=== PATIENT | male | born 1950 | race Caucasian/White ===

== ENCOUNTER 2024-09-23 | Inpatient (IN) | payer MEDICARE, OTHER ==
[~2024-09-23] VITALS: Ht 175.3 cm; Wt 81.8 kg
[2024-09-23] VITALS (7 sets, daily range): BP systolic 115–150; BP diastolic 69–94; PULSE 83–93; RESP 14–24; TEMP 97.9–99; O2SAT 92–97
[2024-09-23] MEDS: amiodarone/D5 360MG/200ML BAG 200 ML IV ONE ×2 (00:39→09:06)
[2024-09-23] MEDS: sodium bicarbonate (8.4%) 1 mEq/ml syringe IV ONE (00:45)
[2024-09-23 01:47] LABS: BASOPHILS # (AUTO) 0.1 X10'3 (0-0.2); BASOPHILS % (AUTO) 0.5 % (0-1); EOSINOPHILS % (AUTO) 0.1 % (0-6); HEMATOCRIT 50.1 % (42.0-52.0); LYMPHOCYTES # (AUTO) 0.3 X10'3 (1.1-4.8); LYMPHOCYTES % (AUTO) 1.4 % (21-51); MEAN CORPUSCULAR HEMOGLOBIN 33.3 PG (27.0-31.0); MEAN CORPUSCULAR HGB CONC 33.9 g/dL (33.0-36.5); MEAN CORPUSCULAR VOLUME 98.4 FL (78-98); MEAN PLATELET VOLUME 9.1 FL (7.4-10.4); MONOCYTES # (AUTO) 0.6 X10'3 (0-0.9); MONOCYTES % (AUTO) 2.9 % (2-12); NEUTROPHILS # (AUTO) 19.3 X10'3 (1.8-7.7); NEUTROPHILS % (AUTO) 95.1 % (42-75); PLATELET COUNT 96 X10'3 (140-440); RED CELL DISTRIBUTION WIDTH 17.9 % (11.5-14.5); WHITE BLOOD COUNT 20.3 X10'3 (4.5-11.0)
[2024-09-23] MEDS ORDERED: FLUT1DIS20 INH (01:53)
[2024-09-23] MEDS ORDERED: FURO-150 PO (01:53)
[2024-09-23] MEDS ORDERED: PRED5TAB PO (01:53)
[2024-09-23] MEDS ORDERED: ALBU90AE INH (01:53)
[2024-09-23] MEDS ORDERED: LOSA-416 PO (01:53)
[2024-09-23] MEDS ORDERED: FLUT1BLS13 INH (01:53)
[2024-09-23] MEDS ORDERED: METO-411 PO (01:53)
[2024-09-23 01:59] LABS: APTT 27 SECONDS (22-32); INR 1.2 INR; PROTHROMBIN TIME 12.8 SECONDS (9.0-12.0)
[2024-09-23 02:11] LABS: BILIRUBIN,URINE SMALL (Neg); CLARITY,URINE SLIGHTLY CLOUDY (Clear); COLOR,URINE YELLOW (Yellow); GLUCOSE, URINE NEGATIVE (Neg); KETONES,URINE TRACE mg/dl (Neg); LEUKOCYTE ESTERASE ,URINE NEGATIVE (Neg); NITRITES, URINE NEGATIVE (Neg); OCCULT BLOOD,URINE SMALL (Neg); PH,URINE 5.5 (4.8-8.0); PROTEIN,URINE 30 mg/dl (Neg); UROBILINOGEN,URINE 0.2 E.U/dL (0.2-1.0)
[2024-09-23 02:41] LABS: UA COLLECTION TYPE CLN CATCH MIDSTREAM
[2024-09-23 02:42] LABS: BACTERIA,URINE FEW /HPF (Neg); SQUAMOUS EPITHELIAL CELL,UR FEW /LPF (FEW)
[2024-09-23 02:43] LABS: HYALINE CASTS 0-3 /LPF (NEGATIVE)
[2024-09-23 02:44] LABS: ALBUMIN 2.3 G/DL (3.4-5.0); ANION GAP 6 (8-16); BLOOD UREA NITROGEN 53 MG/DL (7-18); BUN/CREATININE RATIO 39.6 (10.0-20.0); CALCIUM 8.5 MG/DL (8.5-10.1); CHLORIDE 101 MMOL/L (99-107); CREATINE KINASE MB 14.3 ng/ml (0.3-3.6); CREATININE 1.34 MG/DL (0.60-1.10); GLUCOSE 135 MG/DL (70-104); LIPASE 13 U/L (16-77); MAGNESIUM 2.3 MG/DL (1.5-2.4); POTASSIUM 4.7 MMOL/L (3.5-5.1); SODIUM 141 MMOL/L (135-145); TOTAL CARBON DIOXIDE 33.8 MMOL/L (24-32); eCRCL 48 ML/MIN; eGFR 52 ML/MIN
[2024-09-23 02:49] LABS: CKMB RELATIVE INDEX 1.1 RATIO (0-2.5); CREATINE KINASE 1350 U/L (39-308)
[2024-09-23] MEDS: heparin 10,000 units/1 ML INJ IV ONE ×2 (04:20→05:35)
[2024-09-23] MEDS: normal saline 1000ML IV soln IVB ONE ×2 (04:21→05:43)
[2024-09-23] MEDS: CefTRIAXone 2gm/D5W 50ml BAG 50 ML IV ONE (04:22)
[2024-09-23] MEDS: heparin 25,000 UNIT/250ml bag 250 ML IV PRN (05:37)
[2024-09-23] MEDS: MESSAGE TO NURSING IV ONE ×3 (05:37→20:44)
[2024-09-23] MEDS ORDERED: magnesium Cl slow-release 64mg tablet PO PRN (06:10)
[2024-09-23] MEDS ORDERED: potassium Cl 20 mEq SR tablet PO PRN ×2 (06:10)
[2024-09-23] MEDS ORDERED: potassium Cl 40MEQ/1/2NS 520ml 520 ML IV PRN (06:10)
[2024-09-23] MEDS ORDERED: magnesium sulf-water 2g/50mL 50 ML IV PRN (06:10)
[2024-09-23] MEDS ORDERED: magnesium sulf-water 4G/100mL 100 ML IV PRN (06:10)
[2024-09-23] MEDS ORDERED: normal saline 1000ml 1,000 ML IV SCH (06:15)
[2024-09-23] MEDS: HYDROmorphone 1 mg/ml syringe IV PRN (06:24)
[2024-09-23] MEDS: K and/or MAG REPLACEMENT MC SCH (08:00)
[2024-09-23] MEDS ORDERED: cefepime 1GM in D5W 50mL 50 ML IV SCH (08:00)
[2024-09-23] MEDS: ringers solution, lacted 1,000 ML IV SCH (08:25)
[2024-09-23 08:27] LABS: HEMOGLOBIN A1C 5.9 % (4.5-6.2)
[2024-09-23 08:40] LABS: URINE AMPHETAMINE SCREEN NEGATIVE (Neg); URINE BARBITUATE SCREEN NEGATIVE (Neg); URINE BENZODIAZEPINES SCREEN NEGATIVE (Neg); URINE CANNABINOID SCREEN POSITIVE (Neg); URINE COCAINE SCREEN NEGATIVE (Neg); URINE METHADONE SCREEN NEGATIVE (Neg); URINE OPIATE SCREEN POSITIVE (Neg); URINE PHENCYCLIDINE SCREEN NEGATIVE (Neg)
[2024-09-23] MEDS: normal saline 1000ml 1,000 ML IV ONE (09:04)
[2024-09-23] MEDS: VANCOMYCIN 1GM 200ML H20 (PEG) 200 ML IV SCH (09:05)
[2024-09-23] MEDS: thiamine 100mg/ml 2ml inj. IV SCH (09:05)
[2024-09-23] MEDS: pantoprazole 40 MG vial IV SCH (09:05)
[2024-09-23 13:34] LABS: CREATINE KINASE 601 U/L (39-308)
[2024-09-23 13:37] LABS: APTT 45 SECONDS (22-32)
[2024-09-23] MEDS: heparin 10,000 units/1 ML INJ IV PRN (20:42)
[2024-09-23] MEDS: cefepime 1GM in D5W 50mL 50 ML IV SCH (20:47)
[2024-09-24] VITALS (17 sets, daily range): BP systolic 107–175; BP diastolic 51–95; PULSE 56–103; RESP 13–22; TEMP 97.4–98.6; O2SAT 88–97
[2024-09-24 03:45] LABS: BASOPHILS % (AUTO) 0.2 % (0-1); EOSINOPHILS % (AUTO) 0 % (0-6); HEMOGLOBIN 13.7 g/dl (14.0-17.9); LYMPHOCYTES # (AUTO) 0.5 X10'3 (1.1-4.8); LYMPHOCYTES % (AUTO) 3.4 % (21-51); MEAN CORPUSCULAR HEMOGLOBIN 32.8 PG (27.0-31.0); MEAN CORPUSCULAR HGB CONC 33.4 g/dL (33.0-36.5); MEAN CORPUSCULAR VOLUME 98.1 FL (78-98); MEAN PLATELET VOLUME 9.1 FL (7.4-10.4); MONOCYTES # (AUTO) 0.6 X10'3 (0-0.9); MONOCYTES % (AUTO) 4.3 % (2-12); NEUTROPHILS # (AUTO) 13.1 X10'3 (1.8-7.7); NEUTROPHILS % (AUTO) 92.1 % (42-75); PLATELET COUNT 89 X10'3 (140-440); RED BLOOD COUNT 4.18 X10'6 (4.70-6.10); WHITE BLOOD COUNT 14.2 X10'3 (4.5-11.0)
[2024-09-24 03:51] LABS: INR 1.1 INR; PROTHROMBIN TIME 11.8 SECONDS (9.0-12.0)
[2024-09-24 03:57] LABS: ALANINE AMINOTRANSFERASE 43 U/L (12-78); ALBUMIN 1.7 G/DL (3.4-5.0); ALBUMIN/GLOBULIN RATIO 0.5 (1.1-1.5); ALKALINE PHOSPHATASE 41 IU/L (46-116); ANION GAP 4 (8-16); BILIRUBIN,TOTAL 1.4 MG/DL (0.1-1.0); BLOOD UREA NITROGEN 43 MG/DL (7-18); BUN/CREATININE RATIO 43.4 (10.0-20.0); CHLORIDE 103 MMOL/L (99-107); CHOL/HDL RATIO 2.5 (0.00-4.99); CHOLESTEROL 100 MG/DL (0-200); CREATININE 0.99 MG/DL (0.60-1.10); GLUCOSE 144 MG/DL (70-104); HDL CHOLESTEROL 40 MG/DL (35-60); LDL CHOLESTEROL 49 MG/DL (50-100); MAGNESIUM 2.1 MG/DL (1.5-2.4); SODIUM 139 MMOL/L (135-145); TOTAL PROTEIN 4.9 G/DL (6.4-8.2); TRIGLYCERIDES 81 MG/DL (20-135); eCRCL 64 ML/MIN; eGFR 74 ML/MIN
[2024-09-24 04:02] LABS: ASPARTATE AMINO TRANSFERASE 77 U/L (10-37); CREATINE KINASE 446 U/L (39-308); POTASSIUM 4.3 MMOL/L (3.5-5.1)
[2024-09-24] MEDS: MESSAGE TO NURSING IV ONE ×2 (04:16→11:20)
[2024-09-24] MEDS: regadenoson 0.4mg/5ml syringe IV ONE (09:10)
[2024-09-24] MEDS ORDERED: hydrALAZINE 20mg/ml inj. IV PRN (15:05)
[2024-09-24] MEDS ORDERED: ipratropium/albuterol 3ml nebule NEB PRN (15:10)
[2024-09-24] MEDS: ipratropium/albuterol 3ml nebule NEB SCH (15:20)
[2024-09-24] MEDS: metoprolol succinate 25mg (24-HOUR) SR. Tablet PO SCH (15:22)
[2024-09-24] MEDS: aspirin 81mg, enteric-coated 1 TAB TABLET.DR PO SCH (15:39)
[2024-09-24] MEDS: methylPREDNISolone sod succ 125mg/2ml vial IV SCH (16:10)
[2024-09-24] MEDS: azithromycin/NS 500mg/250ml 250 ML IV SCH (17:21)
[2024-09-24] MEDS: apixaban 5mg tablet PO SCH (20:11)
[2024-09-24] MEDS: amiodarone 200mg tablet PO SCH (20:11)
[2024-09-24] MEDS: atorvastatin 20mg tablet PO SCH (20:12)
[2024-09-24] MEDS: sacubitril/valsartan 24mg-26mg tablet PO SCH (20:12)
[2024-09-24] MEDS: temazepam 15mg capsule PO ONE (20:45)
[2024-09-25] VITALS (10 sets, daily range): BP systolic 109–140; BP diastolic 76–95; PULSE 70–94; RESP 15–23; TEMP 97.6–98.1; O2SAT 91–98
[2024-09-25] MEDS: diphenhydrAMINE 25mg capsule PO ONE (03:38)
[2024-09-25 06:34] LABS: BASOPHILS % (AUTO) 0.1 % (0-1); EOSINOPHILS % (AUTO) 0 % (0-6); HEMATOCRIT 37.7 % (42.0-52.0); HEMOGLOBIN 13.1 g/dl (14.0-17.9); LYMPHOCYTES # (AUTO) 0.2 X10'3 (1.1-4.8); LYMPHOCYTES % (AUTO) 2.8 % (21-51); MEAN CORPUSCULAR HEMOGLOBIN 33.7 PG (27.0-31.0); MEAN CORPUSCULAR HGB CONC 34.7 g/dL (33.0-36.5); MEAN CORPUSCULAR VOLUME 97.1 FL (78-98); MEAN PLATELET VOLUME 8.9 FL (7.4-10.4); MONOCYTES # (AUTO) 0.2 X10'3 (0-0.9); MONOCYTES % (AUTO) 2.3 % (2-12); NEUTROPHILS # (AUTO) 7.3 X10'3 (1.8-7.7); NEUTROPHILS % (AUTO) 94.8 % (42-75); PLATELET COUNT 100 X10'3 (140-440); RED BLOOD COUNT 3.89 X10'6 (4.70-6.10); RED CELL DISTRIBUTION WIDTH 17.3 % (11.5-14.5); WHITE BLOOD COUNT 7.7 X10'3 (4.5-11.0)
[2024-09-25 06:44] LABS: ALANINE AMINOTRANSFERASE 43 U/L (12-78); ALBUMIN 1.8 G/DL (3.4-5.0); ALBUMIN/GLOBULIN RATIO 0.6 (1.1-1.5); ALKALINE PHOSPHATASE 40 IU/L (46-116); ANION GAP 1 (8-16); ASPARTATE AMINO TRANSFERASE 55 U/L (10-37); BILIRUBIN,TOTAL 1.5 MG/DL (0.1-1.0); BLOOD UREA NITROGEN 31 MG/DL (7-18); BUN/CREATININE RATIO 35.2 (10.0-20.0); CALCIUM 7.8 MG/DL (8.5-10.1); CHLORIDE 100 MMOL/L (99-107); CREATININE 0.88 MG/DL (0.60-1.10); GLUCOSE 203 MG/DL (70-104); MAGNESIUM 1.8 MG/DL (1.5-2.4); PHOSPHORUS 1.9 MG/DL (2.3-4.5); POTASSIUM 3.9 MMOL/L (3.5-5.1); SODIUM 133 MMOL/L (135-145); TOTAL CARBON DIOXIDE 32.3 MMOL/L (24-32); TOTAL PROTEIN 4.9 G/DL (6.4-8.2); eCRCL 73 ML/MIN; eGFR 84 ML/MIN
[2024-09-25 06:45] LABS: APTT 32 SECONDS (22-32); INR 1.1 INR; PROTHROMBIN TIME 11.7 SECONDS (9.0-12.0)
[2024-09-25] MEDS: cefepime 1GM in D5W 50mL 50 ML IV SCH (08:10)
[2024-09-25] MEDS: JUVEN Smoothie Arginine/Glut./Ca2+Bmb (Juven 19.3pkt) 240ml cup PO SCH (17:30)
[2024-09-25] MEDS: metoprolol tartrate 25mg tablet PO SCH (20:25)
[2024-09-25] MEDS: ketorolac trometh 15mg/ml vial 15 MG/ML ML IV ONE (22:21)
[2024-09-26] VITALS (19 sets, daily range): BP systolic 121–162; BP diastolic 78–98; PULSE 66–82; RESP 14–22; TEMP 97.5–98.2; O2SAT 92–100
[2024-09-26] MEDS: VANCOMYCIN LEVEL IV ONE (07:30)
[2024-09-26 07:42] LABS: BASOPHILS % (AUTO) 0.1 % (0-1); EOSINOPHILS % (AUTO) 0 % (0-6); HEMATOCRIT 40.6 % (42.0-52.0); HEMOGLOBIN 14.1 g/dl (14.0-17.9); LYMPHOCYTES # (AUTO) 0.2 X10'3 (1.1-4.8); MEAN CORPUSCULAR HGB CONC 34.7 g/dL (33.0-36.5); MEAN CORPUSCULAR VOLUME 98.1 FL (78-98); MONOCYTES # (AUTO) 0.2 X10'3 (0-0.9); MONOCYTES % (AUTO) 1.9 % (2-12); NEUTROPHILS # (AUTO) 9.9 X10'3 (1.8-7.7); PLATELET COUNT 138 X10'3 (140-440); RED BLOOD COUNT 4.14 X10'6 (4.70-6.10); RED CELL DISTRIBUTION WIDTH 17.1 % (11.5-14.5); WHITE BLOOD COUNT 10.3 X10'3 (4.5-11.0)
[2024-09-26] MEDS: metoprolol tartrate 25mg tablet PO SCH (07:51)
[2024-09-26 07:54] LABS: APTT 29 SECONDS (22-32); INR 1.2 INR; PROTHROMBIN TIME 12.1 SECONDS (9.0-12.0)
[2024-09-26 08:00] LABS: ALANINE AMINOTRANSFERASE 44 U/L (12-78); ALBUMIN/GLOBULIN RATIO 0.6 (1.1-1.5); ALKALINE PHOSPHATASE 43 IU/L (46-116); ANION GAP 4 (8-16); ASPARTATE AMINO TRANSFERASE 43 U/L (10-37); BILIRUBIN,TOTAL 1.3 MG/DL (0.1-1.0); BLOOD UREA NITROGEN 36 MG/DL (7-18); BUN/CREATININE RATIO 34.3 (10.0-20.0); CALCIUM 7.9 MG/DL (8.5-10.1); CHLORIDE 99 MMOL/L (99-107); CREATININE 1.05 MG/DL (0.60-1.10); GLUCOSE 193 MG/DL (70-104); MAGNESIUM 1.9 MG/DL (1.5-2.4); PHOSPHORUS 2.5 MG/DL (2.3-4.5); POTASSIUM 4.4 MMOL/L (3.5-5.1); SODIUM 134 MMOL/L (135-145); TOTAL CARBON DIOXIDE 31.4 MMOL/L (24-32); TOTAL PROTEIN 5.3 G/DL (6.4-8.2); VANCOMYCIN,TROUGH 4.3 ug/mL (10.0-20.0); eCRCL 61 ML/MIN; eGFR 69 ML/MIN
[2024-09-26 14:32] LABS: TOTAL HEMOGLOBIN 15.9 G/dl (13.5-17.5)
[2024-09-26] MEDS: furosemide 40mg/4ml inj IV ONE (15:04)
[2024-09-26] MEDS: DOBUTamine-DoBUTrex 500mg/D5W 250 ML IV SCH (15:31)
[2024-09-26 16:24] LABS: ALBUMIN 2.4 G/DL (3.4-5.0); ANION GAP 5 (8-16); BLOOD UREA NITROGEN 40 MG/DL (7-18); BUN/CREATININE RATIO 34.5 (10.0-20.0); CALCIUM 8.4 MG/DL (8.5-10.1); CHLORIDE 97 MMOL/L (99-107); CREATININE 1.16 MG/DL (0.60-1.10); GLUCOSE 204 MG/DL (70-104); POTASSIUM 4.5 MMOL/L (3.5-5.1); PRO BRAIN NATRIURETIC PEPTIDE 29223 PG/ML (0-450); SODIUM 134 MMOL/L (135-145); TOTAL CARBON DIOXIDE 31.6 MMOL/L (24-32); eCRCL 55 ML/MIN; eGFR 61 ML/MIN
[2024-09-26] MEDS: furosemide 40mg/4ml inj IV SCH (19:18)
[2024-09-26] MEDS ORDERED: metoprolol tartrate 25mg tablet PO SCH (20:00)
[2024-09-26] MEDS ORDERED: furosemide 40mg/4ml inj IV SCH (20:00)
[2024-09-27] VITALS (21 sets, daily range): BP systolic 100–134; BP diastolic 48–78; PULSE 70–102; RESP 12–22; TEMP 97.6–99.3; O2SAT 94–98
[2024-09-27] MEDS: nitroGLYCERIN 1gm ointment UD TP SCH (00:20)
[2024-09-27] MEDS: oxyCODONE SR 10mg (sust. release) tab PO ONE (01:47)
[2024-09-27] MEDS: pantoprazole 40mg Tablet.DR PO SCH (07:34)
[2024-09-27 07:57] LABS: BASOPHILS % (AUTO) 0.1 % (0-1); EOSINOPHILS % (AUTO) 0 % (0-6); HEMATOCRIT 38.1 % (42.0-52.0); LYMPHOCYTES # (AUTO) 0.3 X10'3 (1.1-4.8); MEAN CORPUSCULAR HEMOGLOBIN 33.3 PG (27.0-31.0); MEAN CORPUSCULAR HGB CONC 34.2 g/dL (33.0-36.5); MEAN CORPUSCULAR VOLUME 97.2 FL (78-98); MEAN PLATELET VOLUME 8.4 FL (7.4-10.4); MONOCYTES # (AUTO) 0.5 X10'3 (0-0.9); MONOCYTES % (AUTO) 5.7 % (2-12); NEUTROPHILS # (AUTO) 8.3 X10'3 (1.8-7.7); NEUTROPHILS % (AUTO) 91.2 % (42-75); PLATELET COUNT 128 X10'3 (140-440); RED BLOOD COUNT 3.91 X10'6 (4.70-6.10); RED CELL DISTRIBUTION WIDTH 17.2 % (11.5-14.5); WHITE BLOOD COUNT 9.1 X10'3 (4.5-11.0)
[2024-09-27 08:04] LABS: INR 1.2 INR; PROTHROMBIN TIME 12.4 SECONDS (9.0-12.0)
[2024-09-27 08:33] LABS: ALANINE AMINOTRANSFERASE 43 U/L (12-78); ALBUMIN 1.9 G/DL (3.4-5.0); ALBUMIN/GLOBULIN RATIO 0.7 (1.1-1.5); ALKALINE PHOSPHATASE 40 IU/L (46-116); ANION GAP 3 (8-16); ASPARTATE AMINO TRANSFERASE 34 U/L (10-37); BILIRUBIN,TOTAL 1.3 MG/DL (0.1-1.0); BLOOD UREA NITROGEN 39 MG/DL (7-18); BUN/CREATININE RATIO 36.4 (10.0-20.0); CALCIUM 7.6 MG/DL (8.5-10.1); CHLORIDE 99 MMOL/L (99-107); CREATININE 1.07 MG/DL (0.60-1.10); GLUCOSE 172 MG/DL (70-104); MAGNESIUM 1.8 MG/DL (1.5-2.4); PHOSPHORUS 2.6 MG/DL (2.3-4.5); POTASSIUM 4.1 MMOL/L (3.5-5.1); SODIUM 135 MMOL/L (135-145); TOTAL CARBON DIOXIDE 32.8 MMOL/L (24-32); TOTAL PROTEIN 4.7 G/DL (6.4-8.2); eCRCL 60 ML/MIN; eGFR 67 ML/MIN
[2024-09-27] MEDS: furosemide 40mg/4ml inj IV ONE (15:03)
[2024-09-27] MEDS ORDERED: VANCOMYCIN/WATER FOR INJ (PEG) 1.25GM/250 ML IVPB IV SCH (16:00)
[2024-09-27] MEDS: furosemide 40mg/4ml inj IV SCH (18:11)
[2024-09-27] MEDS: linezolid 600mg tablet PO SCH (20:42)
[2024-09-27] MEDS: temazepam 15mg capsule PO ONE (20:43)
[2024-09-27] MEDS: LORazepam 0.5 MG tablet PO ONE (20:43)
[2024-09-28] VITALS (24 sets, daily range): BP systolic 97–117; BP diastolic 43–73; PULSE 75–104; RESP 13–19; TEMP 97.4–98.3; O2SAT 92–97
[2024-09-28] MEDS: amiodarone 200mg tablet PO SCH (07:18)
[2024-09-28 07:53] LABS: BASOPHILS % (AUTO) 0.1 % (0-1); EOSINOPHILS % (AUTO) 0.2 % (0-6); HEMATOCRIT 39.8 % (42.0-52.0); HEMOGLOBIN 13.8 g/dl (14.0-17.9); LYMPHOCYTES # (AUTO) 0.5 X10'3 (1.1-4.8); LYMPHOCYTES % (AUTO) 5.2 % (21-51); MEAN CORPUSCULAR HEMOGLOBIN 33.7 PG (27.0-31.0); MEAN CORPUSCULAR HGB CONC 34.6 g/dL (33.0-36.5); MEAN CORPUSCULAR VOLUME 97.4 FL (78-98); MEAN PLATELET VOLUME 8.2 FL (7.4-10.4); MONOCYTES # (AUTO) 0.7 X10'3 (0-0.9); MONOCYTES % (AUTO) 6.8 % (2-12); NEUTROPHILS # (AUTO) 8.4 X10'3 (1.8-7.7); NEUTROPHILS % (AUTO) 87.7 % (42-75); PLATELET COUNT 150 X10'3 (140-440); RED BLOOD COUNT 4.09 X10'6 (4.70-6.10); RED CELL DISTRIBUTION WIDTH 17.4 % (11.5-14.5); WHITE BLOOD COUNT 9.6 X10'3 (4.5-11.0)
[2024-09-28 08:01] LABS: INR 1.2 INR; PROTHROMBIN TIME 12.1 SECONDS (9.0-12.0)
[2024-09-28 08:34] LABS: ALANINE AMINOTRANSFERASE 42 U/L (12-78); ALBUMIN 1.8 G/DL (3.4-5.0); ALBUMIN/GLOBULIN RATIO 0.6 (1.1-1.5); ALKALINE PHOSPHATASE 43 IU/L (46-116); ANION GAP 2 (8-16); ASPARTATE AMINO TRANSFERASE 32 U/L (10-37); BILIRUBIN,TOTAL 1.3 MG/DL (0.1-1.0); BLOOD UREA NITROGEN 37 MG/DL (7-18); BUN/CREATININE RATIO 33.9 (10.0-20.0); CALCIUM 7.7 MG/DL (8.5-10.1); CHLORIDE 100 MMOL/L (99-107); CREATININE 1.09 MG/DL (0.60-1.10); GLUCOSE 120 MG/DL (70-104); MAGNESIUM 1.8 MG/DL (1.5-2.4); PHOSPHORUS 2.4 MG/DL (2.3-4.5); PRO BRAIN NATRIURETIC PEPTIDE 8176 PG/ML (0-450); SODIUM 135 MMOL/L (135-145); TOTAL CARBON DIOXIDE 33.5 MMOL/L (24-32); TOTAL PROTEIN 4.6 G/DL (6.4-8.2); eCRCL 59 ML/MIN; eGFR 66 ML/MIN
[2024-09-28] MEDS: HYDROmorphone 1 mg/ml syringe IV ONE (12:27)
[2024-09-28] MEDS: metoprolol tartrate 25mg tablet PO SCH (14:16)
[2024-09-28] MEDS: furosemide 40mg/4ml inj IV SCH (20:17)
[2024-09-28] MEDS: LORazepam 0.5 MG tablet PO PRN (20:18)
[2024-09-28] MEDS: temazepam 15mg capsule PO ONE (20:25)
[2024-09-29] VITALS (26 sets, daily range): BP systolic 91–125; BP diastolic 59–91; PULSE 70–87; RESP 12–22; TEMP 97.3–98.8; O2SAT 93–99
[2024-09-29 08:15] LABS: BASOPHILS % (AUTO) 0 % (0-1); EOSINOPHILS # (AUTO) 0.1 X10'3 (0-0.9); EOSINOPHILS % (AUTO) 0.7 % (0-6); HEMATOCRIT 42.4 % (42.0-52.0); HEMOGLOBIN 14.2 g/dl (14.0-17.9); LYMPHOCYTES # (AUTO) 0.6 X10'3 (1.1-4.8); LYMPHOCYTES % (AUTO) 5.8 % (21-51); MEAN CORPUSCULAR HEMOGLOBIN 33.2 PG (27.0-31.0); MEAN CORPUSCULAR HGB CONC 33.6 g/dL (33.0-36.5); MEAN CORPUSCULAR VOLUME 98.9 FL (78-98); MEAN PLATELET VOLUME 8.1 FL (7.4-10.4); MONOCYTES # (AUTO) 0.7 X10'3 (0-0.9); MONOCYTES % (AUTO) 6.5 % (2-12); NEUTROPHILS # (AUTO) 8.7 X10'3 (1.8-7.7); PLATELET COUNT 173 X10'3 (140-440); RED BLOOD COUNT 4.29 X10'6 (4.70-6.10); RED CELL DISTRIBUTION WIDTH 17.6 % (11.5-14.5); WHITE BLOOD COUNT 10.1 X10'3 (4.5-11.0)
[2024-09-29 08:27] LABS: ALANINE AMINOTRANSFERASE 41 U/L (12-78); ALBUMIN 1.8 G/DL (3.4-5.0); ALBUMIN/GLOBULIN RATIO 0.6 (1.1-1.5); ALKALINE PHOSPHATASE 45 IU/L (46-116); ANION GAP 2 (8-16); ASPARTATE AMINO TRANSFERASE 35 U/L (10-37); BILIRUBIN,TOTAL 1.6 MG/DL (0.1-1.0); BLOOD UREA NITROGEN 32 MG/DL (7-18); BUN/CREATININE RATIO 35.2 (10.0-20.0); CALCIUM 7.4 MG/DL (8.5-10.1); CHLORIDE 101 MMOL/L (99-107); CREATININE 0.91 MG/DL (0.60-1.10); GLUCOSE 115 MG/DL (70-104); POTASSIUM 3.9 MMOL/L (3.5-5.1); PRO BRAIN NATRIURETIC PEPTIDE 4850 PG/ML (0-450); SODIUM 134 MMOL/L (135-145); TOTAL CARBON DIOXIDE 31.1 MMOL/L (24-32); TOTAL PROTEIN 4.6 G/DL (6.4-8.2); eCRCL 70 ML/MIN; eGFR 81 ML/MIN
[2024-09-29] MEDS: cephalexin 500mg capsule PO SCH (15:02)
[2024-09-30] VITALS (32 sets, daily range): BP systolic 84–125; BP diastolic 54–79; PULSE 66–101; RESP 12–20; TEMP 96.9–98.6; O2SAT 92–98
[2024-09-30] MEDS: enoxaparin 40mg/0.4ml syringe SUBCUT SCH (08:00)
[2024-09-30] MEDS: enoxaparin 30mg/0.3ml syringe SUBCUT SCH (08:00)
[2024-09-30 08:57] LABS: ALANINE AMINOTRANSFERASE 40 U/L (12-78); ALBUMIN 1.8 G/DL (3.4-5.0); ALBUMIN/GLOBULIN RATIO 0.6 (1.1-1.5); ALKALINE PHOSPHATASE 51 IU/L (46-116); ANION GAP 11 (8-16); ASPARTATE AMINO TRANSFERASE 34 U/L (10-37); BILIRUBIN,TOTAL 1.7 MG/DL (0.1-1.0); BLOOD UREA NITROGEN 32 MG/DL (7-18); BUN/CREATININE RATIO 36.4 (10.0-20.0); CHLORIDE 99 MMOL/L (99-107); CREATININE 0.88 MG/DL (0.60-1.10); GLUCOSE 99 MG/DL (70-104); POTASSIUM 4.2 MMOL/L (3.5-5.1); SODIUM 136 MMOL/L (135-145); TOTAL CARBON DIOXIDE 25.9 MMOL/L (24-32); TOTAL PROTEIN 4.7 G/DL (6.4-8.2); eCRCL 73 ML/MIN; eGFR 84 ML/MIN
[2024-09-30 09:12] LABS: CALCIUM QNS MG/DL (8.5-10.1)
[2024-09-30 09:45] LABS: BASOPHILS % (AUTO) 0.1 % (0-1); EOSINOPHILS # (AUTO) 0.1 X10'3 (0-0.9); EOSINOPHILS % (AUTO) 0.5 % (0-6); HEMATOCRIT 41.9 % (42.0-52.0); HEMOGLOBIN 14.4 g/dl (14.0-17.9); LYMPHOCYTES # (AUTO) 0.6 X10'3 (1.1-4.8); LYMPHOCYTES % (AUTO) 5.6 % (21-51); MEAN CORPUSCULAR HEMOGLOBIN 33.8 PG (27.0-31.0); MEAN CORPUSCULAR HGB CONC 34.4 g/dL (33.0-36.5); MEAN CORPUSCULAR VOLUME 98.2 FL (78-98); MEAN PLATELET VOLUME 8.4 FL (7.4-10.4); MONOCYTES # (AUTO) 0.6 X10'3 (0-0.9); MONOCYTES % (AUTO) 5.3 % (2-12); NEUTROPHILS # (AUTO) 10.1 X10'3 (1.8-7.7); NEUTROPHILS % (AUTO) 88.5 % (42-75); PLATELET COUNT 211 X10'3 (140-440); RED BLOOD COUNT 4.27 X10'6 (4.70-6.10); WHITE BLOOD COUNT 11.4 X10'3 (4.5-11.0)
[2024-09-30] MEDS: ringers solution, lacted 1,000 ML IV SCH (15:25)
[2024-09-30] MEDS ORDERED: enalaprilat 1.25mg/ml 2ml vial IV PRN (15:25)
[2024-09-30] MEDS ORDERED: fentaNYL/PF 50MCG/1 ML 2ML syringe IV PRN ×2 (15:25)
[2024-09-30] MEDS ORDERED: hydrALAZINE 20mg/ml inj. IV PRN (15:25)
[2024-09-30] MEDS ORDERED: ondansetron/PF 4mg/2ml inj IV PRN (15:25)
[2024-09-30] MEDS ORDERED: morphine 4 MG/ML inj SYRINge IV PRN (15:25)
[2024-09-30] MEDS ORDERED: VANCOMYCIN LEVEL IV ONE (15:30)
[2024-09-30] MEDS ORDERED: desflurane 240ml liquid inh. IH ONE (18:05)
[2024-09-30] MEDS ORDERED: fentaNYL/PF 50MCG/1 ML 2ML syringe ONE (18:06)
[2024-09-30] MEDS ORDERED: midazolam 1 mg/ML 2ml injection ONE (18:35)
[2024-09-30] MEDS ORDERED: ceFAZolin 1000mg inj ONE ×2 (18:49)
[2024-09-30] MEDS ORDERED: propofol inj 20 ML IV ONE (18:50)
[2024-09-30] MEDS ORDERED: dexamethasone sod phosphate 4mg/ml inj. ONE (18:51)
[2024-09-30] MEDS ORDERED: ondansetron/PF 4mg/2ml inj ONE (18:52)
[2024-09-30] MEDS ORDERED: albumin (Human) 5% 250ml 250 ML IV ONE ×2 (19:00→19:19)
[2024-09-30] MEDS ORDERED: vancomycin 1,000mg inj ONE (19:18)
[2024-09-30] MEDS: morphine 2 MG/ML inj. syringe IV PRN ×2 (20:21→23:32)
[2024-09-30] MEDS: VANCOMYCIN/H2O 1.5g/300mL PB 300 ML IV ONE (21:54)
[2024-10-01] VITALS (20 sets, daily range): BP systolic 71–106; BP diastolic 46–66; PULSE 75–109; RESP 14–22; TEMP 96.7–98.6; O2SAT 91–98
[2024-10-01] MEDS: ceFAZolin 2gm in dextrose, iso 50 ML IV SCH (01:30)
[2024-10-01] MEDS: DOBUTamine-DoBUTrex 500mg/D5W 250 ML IV SCH (04:54)
[2024-10-01 07:21] LABS: BASOPHILS # (AUTO) 0.1 X10'3 (0-0.2); BASOPHILS % (AUTO) 0.4 % (0-1); EOSINOPHILS % (AUTO) 0 % (0-6); HEMATOCRIT 32.9 % (42.0-52.0); HEMOGLOBIN 11.1 g/dl (14.0-17.9); LYMPHOCYTES # (AUTO) 0.2 X10'3 (1.1-4.8); LYMPHOCYTES % (AUTO) 1.4 % (21-51); MEAN CORPUSCULAR HEMOGLOBIN 33.3 PG (27.0-31.0); MEAN CORPUSCULAR HGB CONC 33.8 g/dL (33.0-36.5); MEAN CORPUSCULAR VOLUME 98.4 FL (78-98); MEAN PLATELET VOLUME 8.1 FL (7.4-10.4); MONOCYTES # (AUTO) 0.5 X10'3 (0-0.9); MONOCYTES % (AUTO) 3.2 % (2-12); NEUTROPHILS # (AUTO) 14.9 X10'3 (1.8-7.7); PLATELET COUNT 183 X10'3 (140-440); RED BLOOD COUNT 3.35 X10'6 (4.70-6.10); RED CELL DISTRIBUTION WIDTH 17.1 % (11.5-14.5); WHITE BLOOD COUNT 15.7 X10'3 (4.5-11.0)
[2024-10-01 08:08] LABS: ALANINE AMINOTRANSFERASE 31 U/L (12-78); ALBUMIN/GLOBULIN RATIO 0.8 (1.1-1.5); ALKALINE PHOSPHATASE 41 IU/L (46-116); ANION GAP 5 (8-16); ASPARTATE AMINO TRANSFERASE 30 U/L (10-37); BILIRUBIN,TOTAL 1.4 MG/DL (0.1-1.0); BLOOD UREA NITROGEN 37 MG/DL (7-18); BUN/CREATININE RATIO 30.8 (10.0-20.0); CALCIUM 7.6 MG/DL (8.5-10.1); CHLORIDE 100 MMOL/L (99-107); GLUCOSE 224 MG/DL (70-104); POTASSIUM 4.3 MMOL/L (3.5-5.1); SODIUM 136 MMOL/L (135-145); TOTAL PROTEIN 4.4 G/DL (6.4-8.2); eCRCL 53 ML/MIN; eGFR 59 ML/MIN
[2024-10-01] MEDS: ondansetron/PF 4mg/2ml inj IV PRN (17:35)
[2024-10-02] VITALS (11 sets, daily range): BP systolic 96–131; BP diastolic 52–72; PULSE 68–101; RESP 14–18; TEMP 97.3–99; O2SAT 91–96
[2024-10-02 06:47] LABS: BASOPHILS % (AUTO) 0.2 % (0-1); EOSINOPHILS % (AUTO) 0.1 % (0-6); HEMATOCRIT 31.8 % (42.0-52.0); HEMOGLOBIN 11.2 g/dl (14.0-17.9); LYMPHOCYTES # (AUTO) 0.6 X10'3 (1.1-4.8); LYMPHOCYTES % (AUTO) 3.9 % (21-51); MEAN CORPUSCULAR HEMOGLOBIN 33.8 PG (27.0-31.0); MEAN CORPUSCULAR HGB CONC 35.1 g/dL (33.0-36.5); MEAN CORPUSCULAR VOLUME 96.3 FL (78-98); MEAN PLATELET VOLUME 8.1 FL (7.4-10.4); MONOCYTES % (AUTO) 6.1 % (2-12); NEUTROPHILS # (AUTO) 14.7 X10'3 (1.8-7.7); NEUTROPHILS % (AUTO) 89.7 % (42-75); PLATELET COUNT 191 X10'3 (140-440); RED CELL DISTRIBUTION WIDTH 17.4 % (11.5-14.5); WHITE BLOOD COUNT 16.4 X10'3 (4.5-11.0)
[2024-10-02 07:08] LABS: ALANINE AMINOTRANSFERASE 24 U/L (12-78); ALBUMIN/GLOBULIN RATIO 0.8 (1.1-1.5); ALKALINE PHOSPHATASE 43 IU/L (46-116); ANION GAP 2 (8-16); ASPARTATE AMINO TRANSFERASE 28 U/L (10-37); BILIRUBIN,TOTAL 1.6 MG/DL (0.1-1.0); BLOOD UREA NITROGEN 45 MG/DL (7-18); BUN/CREATININE RATIO 35.7 (10.0-20.0); CALCIUM 7.6 MG/DL (8.5-10.1); CHLORIDE 99 MMOL/L (99-107); CREATININE 1.26 MG/DL (0.60-1.10); GLUCOSE 158 MG/DL (70-104); POTASSIUM 4.5 MMOL/L (3.5-5.1); SODIUM 134 MMOL/L (135-145); TOTAL CARBON DIOXIDE 33.3 MMOL/L (24-32); TOTAL PROTEIN 4.4 G/DL (6.4-8.2); eCRCL 51 ML/MIN; eGFR 56 ML/MIN
[2024-10-02] MEDS: carVEDilol 3.125mg tablet PO SCH (07:18)
[2024-10-02] MEDS: DAPAGLIFLOZIN 10MG TABLET PO SCH (07:18)
[2024-10-02] MEDS: normal saline 1000ml 1,000 ML IV SCH (09:58)
[2024-10-03 06:00] VITALS: BP 106/55; PULSE 88; RESP 18; TEMP 97.6; O2SAT 91; O2SAT 94
[2024-10-03 06:11] LABS: ALANINE AMINOTRANSFERASE 11 U/L (12-78); ALBUMIN 1.8 G/DL (3.4-5.0); ALBUMIN/GLOBULIN RATIO 0.7 (1.1-1.5); ALKALINE PHOSPHATASE 48 IU/L (46-116); ANION GAP 5 (8-16); ASPARTATE AMINO TRANSFERASE 22 U/L (10-37); BILIRUBIN,TOTAL 1.4 MG/DL (0.1-1.0); BLOOD UREA NITROGEN 35 MG/DL (7-18); CALCIUM 7.4 MG/DL (8.5-10.1); CHLORIDE 100 MMOL/L (99-107); CREATININE 1.03 MG/DL (0.60-1.10); GLUCOSE 141 MG/DL (70-104); POTASSIUM 4.4 MMOL/L (3.5-5.1); SODIUM 135 MMOL/L (135-145); TOTAL CARBON DIOXIDE 29.9 MMOL/L (24-32); TOTAL PROTEIN 4.3 G/DL (6.4-8.2); eCRCL 62 ML/MIN; eGFR 70 ML/MIN
[2024-10-03 06:22] LABS: BASOPHILS % (AUTO) 0 % (0-1); EOSINOPHILS # (AUTO) 0.1 X10'3 (0-0.9); EOSINOPHILS % (AUTO) 0.4 % (0-6); HEMATOCRIT 29.6 % (42.0-52.0); HEMOGLOBIN 10.3 g/dl (14.0-17.9); LYMPHOCYTES # (AUTO) 0.7 X10'3 (1.1-4.8); LYMPHOCYTES % (AUTO) 4.4 % (21-51); MEAN CORPUSCULAR HEMOGLOBIN 33.5 PG (27.0-31.0); MEAN CORPUSCULAR HGB CONC 34.8 g/dL (33.0-36.5); MEAN CORPUSCULAR VOLUME 96.2 FL (78-98); MEAN PLATELET VOLUME 8.1 FL (7.4-10.4); MONOCYTES % (AUTO) 6.3 % (2-12); NEUTROPHILS # (AUTO) 14.1 X10'3 (1.8-7.7); NEUTROPHILS % (AUTO) 88.9 % (42-75); PLATELET COUNT 192 X10'3 (140-440); RED BLOOD COUNT 3.07 X10'6 (4.70-6.10); RED CELL DISTRIBUTION WIDTH 17.4 % (11.5-14.5); WHITE BLOOD COUNT 15.8 X10'3 (4.5-11.0)
[2024-10-03] MEDS: EMPAGLIFLOZIN 10 MG TABLET PO SCH (07:33)
[2024-10-03 08:00] VITALS: RESP 18; O2SAT 94
[2024-10-03] MEDS ORDERED: oxyCODONE/APAP 10/325mg tablet PO PRN (09:15)
[2024-10-03] MEDS: oxyCODONE/APAP 10/325mg tablet PO PRN (09:54)
[2024-10-03 13:26] VITALS: RESP 16
== END 2024-10-03 14:23 | DRG 853 ==
LOC: ER 00:02 → ED HOLD 06:12 → PCU 3S 11:55
PROVIDERS: ADMIT Internal Medicine Sleep Medicine; ATTEND Nurse Practitioner Family
PROC: 4A02XM4 Measurement of Cardiac Total Activity, External Approach (ICD-10-PCS; 2024-09-24)
PROC: 3E033HZ Introduction of Radioactive Substance into Peripheral Vein, Percutaneous Approach (ICD-10-PCS; 2024-09-24)
PROC: 0SRR01Z Replacement of Right Hip Joint, Femoral Surface with Metal Synthetic Substitute, Open Approach (ICD-10-PCS; principal; 2024-09-30 18:15)
PROC: 30233N1 Transfusion of Nonautologous Red Blood Cells into Peripheral Vein, Percutaneous Approach (ICD-10-PCS; 2024-10-01)
DX: A41.9 Sepsis, unspecified organism (principal); I21.A1 Myocardial infarction type 2; S72.091A Other fracture of head and neck of right femur, initial encounter for closed fracture; I50.23 Acute on chronic systolic (congestive) heart failure; J96.01 Acute respiratory failure with hypoxia; L03.115 Cellulitis of right lower limb; E87.20 Acidosis, unspecified; Z59.00 Homelessness unspecified; I47.10 Supraventricular tachycardia, unspecified; I48.20 Chronic atrial fibrillation, unspecified; D62 Acute posthemorrhagic anemia; N17.9 Acute kidney failure, unspecified; I34.0 Nonrheumatic mitral (valve) insufficiency; I25.5 Ischemic cardiomyopathy; I11.0 Hypertensive heart disease with heart failure; I25.10 Atherosclerotic heart disease of native coronary artery without angina pectoris; K74.69 Other cirrhosis of liver; E86.0 Dehydration; T79.6XXA Traumatic ischemia of muscle, initial encounter; F14.90 Cocaine use, unspecified, uncomplicated; W18.39XA Other fall on same level, initial encounter; J44.89 Other specified chronic obstructive pulmonary disease; I25.2 Old myocardial infarction; Z79.899 Other long term (current) drug therapy; Z90.49 Acquired absence of other specified parts of digestive tract; Z86.73 Personal history of transient ischemic attack (TIA), and cerebral infarction without residual deficits; Y93.89 Activity, other specified; Y92.89 Other specified places as the place of occurrence of the external cause; Y99.8 Other external cause status; I95.89 Other hypotension
CPT/HCPCS: 36415; 71045; 72170; 73502; 76700; 78452; 80048; 80053; 80061; 80202; 80305; 81001; 82550; 82553; 82948; 83036; 83605; 83690; 83735; 83874; 83880; 84100; 84145; 84484; 85018; 85025; 85610; 85730; 86885; 86900; 86901; 86920; 87040; 87070; 87075; 87077; 87081; 87088; 87186; 92508; 92616; 92950; 93005; 93017; 93306; 94640; 94760; 96365; 96367; 97110; 97161; 97530; 99291; A4615; A4620; A4649; A6196; A6209; A6212; A6213; A6223; A6250; A6253; A6258; A6402; A6446; A6449; A6454; A7000; A9500; C1776; G0378; J0282; J0456; J0690; J0692; J0696; J1100; J1171; J1250; J1644; J1650; J1885; J1940; J2250; J2270; J2371; J2405; J2470; J2704; J2785; J2919; J3010; J3370; J3372; J3411; J3490; J7030; J7040; J7120; J7121; P9016; P9045; Q0163